=== PATIENT | male | born 1985 | race Caucasian/White ===

== ENCOUNTER 2019-08-02 18:30 | Emergency (ER) | payer OTHER ==
[~2019-08-02] VITALS: Ht 180.3 cm; Wt 95.0 kg
[2019-08-02 18:30] VITALS: BP 127/73
[2019-08-02] MEDS ORDERED: ONDANSETRON 4 MG ORAL DISINTEGRATING TAB (Q0162 PER 1MG) PO ONE (19:30)
[2019-08-02 20:07] LABS: INFLUENZA A AMPLIFICATION NEGATIVE (NEGATIVE); INFLUENZA B AMPLIFICATION NEGATIVE (NEGATIVE)
[2019-08-02] MEDS ORDERED: ONDA4TAB6 PO (20:12)
== END 2019-08-02 20:17 | disposition home or self-care (01) ==
LOC: M ED 18:30
DX: R11.2 Nausea with vomiting, unspecified (principal); R19.7 Diarrhea, unspecified; M79.10 Myalgia, unspecified site; R51 Headache
CPT/HCPCS: 87502; 99282; Q0162

== ENCOUNTER 2022-01-01 10:29 | Emergency (ER) | payer OTHER ==
[~2022-01-01] VITALS: Ht 180.3 cm; Wt 105.6 kg
[2022-01-01 10:29] VITALS: BP 164/108
[~2022-01-01 10:29] MED LIST: ONDA4TAB6 PO
[2022-01-01] MEDS ORDERED: CYCLOBENZAPRINE 10MG TABLET PO ONE (13:00)
[2022-01-01] MEDS ORDERED: CYCL-707 PO (13:14)
== END 2022-01-01 13:26 | disposition home or self-care (01) ==
LOC: M ED 10:29
DX: S13.4XXA Sprain of ligaments of cervical spine, initial encounter (principal); W01.0XXA Fall on same level from slipping, tripping and stumbling without subsequent striking against object, initial encounter; W22.8XXA Striking against or struck by other objects, initial encounter; Y92.009 Unspecified place in unspecified non-institutional (private) residence as the place of occurrence of the external cause; Y93.9 Activity, unspecified; Y99.9 Unspecified external cause status